=== PATIENT | female | born 1950 ===

== ENCOUNTER 2025-02-13 10:52 | Outpatient (AMB) | payer OTHER, SELFPAY ==
--- NOTE | 2025-02-13 11:20 | A.OFFVIS_ITS ---
Intake Visit Reasons: Kidney Mass question cancer Intake Note: New Patient is present for kidney mass Urology Rx: none Blood Thinners:none Imaging completed: CT 12/19/2024 Chief Gauger Required: No Accompanied by: Self / Same As Patient Allergies No Known Allergies Allergy (Verified 02/13/25 11:27) HPI Comments Details: Sarai is a pleasant Moroccan speaking female. Accompanied by member from [employer]. She is a patient of . She is seen for following urologic conditions - renal mass Medical translation provided by qualified certified court interpreter via telephone Moroccan Underwent chest CT after fall in December Suspect 5 cm lesion on right kidney highly suspicious for kidney cancer Discussed imaging findings with patient Recommend 1st step kidney MRI for full characterization Treatment options include surgical removal versus targeted ablation Does have background diabetes however well-controlled with just metformin Review of Systems Const Denies chills and Denies fever(s) Card Reports no additional complaints and Denies syncope Resp Denies cough GI Denies abdominal pain and Denies heartburn Reports as per HPI and Denies change in libido Neuro Denies syncope Psych Denies change in libido Endo Denies change in libido Physical Exam Const General: cooperative, healthy appearing, comfortable and no acute distress Orientation/consciousness: patient oriented x3 HEENT Face and sinus: Yes normal facial exam Mouth: moist mucous membranes Neck Neck: Yes normal visual inspection, Yes full ROM and Yes trachea midline Chest Chest palpation & inspection: normal inspection of the chest Resp Effort & Inspection: normal respiratory effort, able to speak in complete sentences and no respiratory distress GI Inspection: Yes normal to inspection Back/Spine/Pelvis Cervical Spine: normal cervical lordosis Thoracic/Lumbar Spine: thoracic and lumbar spine normal to inspection Skin General skin exam: no rashes or lesions noted Neuro General: patient oriented x3, gait normal, tone normal and moves all extremities Extrem General: Yes normal to inspection and Yes capillary refill normal Assessment & Plan Assessment & Plan (1) Kidney malignancy: Code(s): C64.9 - Malignant neoplasm of unspecified kidney, except renal pelvis Category: Medical Plan Renal imaging Follow-up Orders: Orders MR abdomen wo/w con Today C64.9 - Malignant neoplasm of unspecified kidney, except renal pelvis Blood Urea Nitrogen Today C64.9 - Malignant neoplasm of unspecified kidney, except renal pelvis Creatinine Today C64.9 - Malignant neoplasm of unspecified kidney, except renal pelvis Patient Instructions: This note is constructed using voice recognition software. While every effort has been made to ensure accuracy property management coordinator errors may have been included. Imaging studies, laboratory and physical exam results were discussed and reviewed in detail. No major barriers to patient understanding were identified. An opportunity to ask questions regarding the treatment plan was provided. All questions were answered. The patient expressed understanding and agreement with the above treatment plan. The patient is aware they should contact our office by phone for worsening of their current condition or the appearance of new urologic symptoms. Compliance is encouraged with any medications and followup testing that is ordered. It is a privilege to participate in the urologic care of your patient. If you have any questions or concerns regarding treatment for the above conditions, or other urologic issues, please do not hesitate to contact me. The office telephone contact is [phone]. Sincerely, Dr Sim Reese MD, [facility] - Urology Compassionate Specialist Care for the Genitourinary System Coding Level of Care Code New Pt Level 4 (36267) Diagnoses Kidney malignancy C64.9
--- OUTSIDE RECORDS SUMMARY | 2025-02-13 12:54 | XMS_ITS | Clinical Summary ---
Author Organization [facility] it Address [address] [place] [address] Care Team Providers Care Design Eng Name Role Phone Unavailable Primary Care Provider Unavailabl e Social History Tobacco Use Types Packs/Day Years Used Date Smoking Tobacco: Never Assessed Comments Unknown Sex and Gender Information Value Date Recorded Sex Assigned at Not on file Legal Sex Female 3:09 AM EST Gender Identity Not on file Sexual Orientation Not on file Plan of Treatment Health Maintenance Due Date Last Done Comments Breast Cancer Screening 1950 DTaP,Tdap,and Td Vaccines (1 - Tdap) 1969 Pneumococcal Vaccine: 50+ Ye ars (1 of 1 - PCV) 2000 Zoster Vaccines (1 of 2) 2000 Depression Screening 06/13/2024 COVID-19 Vaccine (1 - 2023-2 5 season) 2025 Influenza Vaccine (#1) 2025 RSV Immunization Adult Patie nts (1 - 1-dose 75+ series) 2025 HIB Vaccines Aged Out No longer eligi ble based on patient's age to complete this topic HPV Vaccines Aged Out No longer eligi ble based on patient's age to complete this topic Hepatitis A Vaccines Aged Out No long er eligible based on patient's age to complete this topic Hepatitis B Vaccines Aged Out No long er eligible based on patient's age to complete this topic IPV Vaccines Aged Out No longer eligi ble based on patient's age to complete this topic MMR Vaccines Aged Out No longer eligi ble based on patient's age to complete this topic Meningococcal ACWY Vaccine Aged Out N o longer eligible based on patient's age to complete this topic Meningococcal B Vaccine Aged Out No l onger eligible based on patient's age to complete this topic RSV Immunization Patients Un nidira 20 months Aged Out No longer eligible b ased on patient's age to complete this topic Varicella Vaccines Aged Out No longer eligible based on patient's age to complete this topic
--- OUTSIDE RECORDS SUMMARY | 2025-02-13 12:54 | XMS_ITS | Clinical Summary ---
Author Organization [facility] Address [address] [place] [address] Care Team Providers Care Prosecuting Attorney Name Role Phone Desiree Tran PA-C Primary Care Provider Source Comments PLEASE NOTE, if this patient is a minor, it may be UNLAWFUL to discuss sensitive information that is contained in these records (such as FAMILY PLANNING, MENTAL HEALTH or SUBSTANCE ABUSE) with the minor patient's parent or other person without the patient's specific authorization.[facility] Allergies Active Allergy Reactions Criticality Noted Date Comments Nathanael Inhibitors Anaphylaxis 05/31/2013 Medications lancets (FREESTYLE LANCETS) 28 gaugeIndications: Diabetes mellitus type 2, diet-controlled ([facility]) Freestyle lite lancets, use QD, dx E11.9 50 Each 09/05/19 24 Active alcohol swabsIndications: Diabetes mellitus type 2, diet-controlled ([facility]) Use qd, dx E11.9. 50 Each 01/24/20 25 Active lancets (FREESTYLE LANCETS) 28 gaugeIndications: Diabetes mellitus type 2, diet-controlled ([facility]) Freestyle lite lancets, use QD, dx E11.9. 50 Each 01/24/20 25 Active blood sugar diagnostic stripsIndications :Diabetes mellitus type 2, diet-controlled ([facility]) 1 Each daily Freestyle lite strips use QD, dx E11.9. 50 Each 01/24/20 25 Active olmesartan (BENICAR) 20 mg tabletIndications :Benign essential HTN Take 1 Tablet by mouth once daily. 90 Tablet 4 01/24/20 25 Active rosuvastatin (CRESTOR) 5 mg tabletIndications :Mild hyperlipidemia Take 1 Tablet by mouth nightly at bedtime. 90 Tablet 2 01/24/20 [address] tabletIndications :Benign essential HTN,Diabetes mellitus type 2, diet-controlled ([facility]) Take 1 Tablet by mouth once daily. 90 Tablet 3 01/24/20 25 Active metFORMIN (GLUCOPHAGE) 500 mg tabletIndications :Diabetes mellitus type 2, diet-controlled ([facility]) Take 1 Tablet by mouth once daily with breakfast. 90 Tablet 2 01/24/20 25 Active diclofenac sodium (VOLTAREN) 1 % gelIndications:Diana mbar disc disease Apply 2 g topically 2 (two) times daily. 100 g 01/24/20 25 Active acetaminophen (TYLENOL) 500 mg tabletIndications :Subacute sinusitis, unspecified location Take 2 Tablets by mouth every 6 (six) hours as needed for pain or fever 200 Tablet 1 05/31/20 025 Discontin ued(Outda federico-Remov ed from Med List (E-Cancel Not Sent)) MISCELLANEOUS MEDICAL SUPPLY MISCIndications:M ixed incontinence by miscellaneous route daily. Dry skin cream, disp 400 gm/month, dx dry skin dermatitis 400 Each 05/31/20 025 Discontin ued(Outda federico-Remov ed from Med List (E-Cancel Not Sent)) alcohol swabsIndications: Diabetes mellitus type 2, diet-controlled ([facility]) Use qd, dx E11.9 50 Each 09/05/19 24 025 Discontin ued(Outda federico-Remov ed from Med List (E-Cancel Not Sent)) blood sugar diagnostic stripsIndications :Diabetes mellitus type 2, diet-controlled ([facility]) 1 Each daily. Freestyle lite strips use QD, dx E11.9 50 Each 09/05/19 24 025 Discontin ued(Outda federico-Remov ed from Med List (E-Cancel Not Sent)) blood-glucose meter monitoring kitIndications:Di abetes mellitus type 2, diet-controlled ([facility]) 1 Each daily. Freestyle lite meter, disp 1, lifetime need, dx E11.9 1 Each 09/05/19 24 025 Discontin ued(Outda federico-Remov ed from Med List (E-Cancel Not Sent)) comp.stocking,kne e,long,mediumIndi cations:Venous insufficiency 20-30 mmHg thigh high compression stockings, disp 2 pairs, dx venous insufficiency, fax 1 Each 09/05/19 24 025 Discontin ued(Outda federico-Remov ed from Med List (E-Cancel Not Sent)) MISCELLANEOUS MEDICAL SUPPLY MISCIndications:M ixed incontinence by miscellaneous route daily. sanitary wipes, two packs/month dx bowel/bladder care 200 Each 11 09/05/19 24 025 Discontin ued(Outda federico-Remov ed from Med List (E-Cancel Not Sent)) MISCELLANEOUS MEDICAL SUPPLY MISCIndications:M ixed incontinence by miscellaneous route daily. 1 box large gloves, disp 1 box/month dx bowel/bladder care 100 Each 11 09/05/19 24 025 Discontin ued(Outda federico-Remov ed from Med List (E-Cancel Not Sent)) diclofenac sodium (VOLTAREN) 1 % gelIndications:Pr imary osteoarthritis involving multiple joints APPLY 4 GRAMS TOPICALLY TO BILATERAL KNEES FOUR TIMES DAILY 300 g 5 03/14/20 24 025 Discontin ued(Cance lled) olmesartan (BENICAR) 20 mg tabletIndications :Benign essential HTN Take 1 Tablet by mouth once daily 90 Tablet 4 03/14/20 24 025 Discontin ued(Reord er (E-Cancel Not Sent)) rosuvastatin (CRESTOR) 5 mg tabletIndications :Mild hyperlipidemia Take 1 Tablet by mouth nightly at bedtime 90 Tablet 2 03/14/20 24 025 Discontin ued(Reord er (E-Cancel Not Sent)) aspirin [address] tabletIndications :Benign essential HTN,Diabetes mellitus type 2, diet-controlled ([facility]) TAKE 1 TABLET BY MOUTH EVERY DAY 90 Tablet 3 04/23/20 24 025 Discontin ued(Reord er (E-Cancel Not Sent)) metFORMIN (GLUCOPHAGE) 500 mg tabletIndications :Diabetes mellitus type 2, diet-controlled (CMS & [facility]HS-HCC) TAKE 1 TABLET BY MOUTH DAILY WITH BREAKFAST 90 Tablet 2 10/05/19 25 025 Discontin ued(Reord er (E-Cancel Not Sent)) Active Problems Problem Noted Date Diagnosed Date Right kidney mass 01/23/2025 Lumbar disc disease 03/28/2020 Primary generalized hypertrophic osteoarthrosis 01/19/2017 Visual changes 09/08/2016 Cognitive changes 09/08/2016 Diabetes mellitus type 2, diet-controlled ([facility]) 06/04/2016 Venous insufficiency 03/02/2016 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 11/02/2013 11/02/2013 Benign essential HTN Varicose vein GERD (gastroesophageal reflux disease) Overview (04/05/2013): Hiatal hernia GI 11/07/2008 Encounters Date Type Department Care Team Description 01/23/2025 9:20 AM EDT Office Visit [address] [address] Desiree Tran PA-C from Last 3 Months Immunizations Immunization Administration Dates Next Due Hep B, Adult/Adol (UGHSYOL-B-UTBZE/RECOMBIVAX-AD ULT) 12/02/2005,10/07/2005 Td (adult),2 Lf tetanus toxo id (TDVAX), preservative free 10/07/2005,08/19/2005 Social History Tobacco Use Types Packs/Day Years Used Date Smoking Tobacco: Never Passive Smoke Exposure: Never Smokeless Tobacco: Never Tobacco Cessation:Counseling Given: Yes Alcohol Use Standard Drinks/Week Comments No 0 (1 standard drink = 0.6 oz pur e alcohol) Social Connections Answer Date Recorded Connectedness 1 09/05/2023 Financial Resource Strain Answer Date R ecorded Financial Resource Strain 1 2023 Stress Answer Date Recorded Stress 1 09/05/2023 Physical Activity Answer Date Recorded Physical Activity 0 02/02/2019 Food Insecurity Answer Date Recorded Food 1 09/05/2023 Transportation Needs Answer Date Record ed Transportation 1 09/05/2023 Housing Stability Answer Date Recorded Housing 1 09/05/2023 Safety and Environment Answer Date Wilfrid rded Safety 1 09/05/2023 Utilities Answer Date Recorded Utilities 1 09/05/2023 Employment Answer Date Recorded Stress 0 08/31/2021 Comments No Sex and Gender Information Value Date Recorded Sex Assigned at Female 04/05/2017 11:57 AM PDT Legal Sex Female 11:36 AM PDT Gender Identity Female 04/05/2017 11:57 AM PDT Sexual Orientation Straight 04/05/2017 11 :57 AM PDT Last Filed Vital Signs Vital Sign Reading Time Taken Comments Blood Pressure 132/64 01/23/2025 9:13 AM EDT Pulse 71 01/23/2025 9:13 AM EDT Temperature 36.3 C (97.4 F) 01/23/2025 9:13 AM EDT Respiratory Rate 16 01/23/2025 9:13 AM EDT Oxygen Saturation 98% 01/23/2025 9:13 AM EDT Inhaled Oxygen Concentration - - Weight 66.7 kg (147 lb) 01/23/2025 9:13 AM EDT Height 166 cm (5' 5.35 ) 01/23/2025 9:13 AM EDT Body Mass Index 24.2 01/23/2025 9:13 AM EDT Plan of Treatment Upcoming Encounters Date Type Department Care Team (Late st Contact Info) Description 03/11/2025 11:00 AM EDT Telemedicine Visit [facility] [address] [place] [address] Desiree Tran PA-C [address] [place] [address] Health Maintenance Due Date Last Done Comments Medicare Annual Wellness Visit 1968 Imm-Pneumococcal 50+ (1 of 2 - PCV) 1969 CT Colonography 12/28/1995 Colonoscopy 12/28/1995 Fecal DNA 12/28/1995 Flexible Sigmoidoscopy 12/28/1995 Breast Cancer Screening (Mammogram) 05/31/2015 05/31/2013 (Declined) Colorectal Cancer Screening 07/23/2015 FIT/gFOBT 07/23/2015 07/23/2014 (Decl ined), 05/31/2013 (Declined) Falls Prevention 12/28/2015 Mee-NXXON-30 ( season) 2025 Diabetes Foot Exam 03/14/2025 03/14/2024, 0 09/08/2022, 11/17/2021 Retinopathy Screening 03/14/2025 03/14/2024 (Managed by Outside Provider) Hemoglobin A1c 07/26/2025 01/23/2025, 1007/2023, 05/31/2023, Additional history exists Lipid Screening 01/23/2026 01/23/2025, 05/13, 09/08/2022, Additional history exists Serum Creatinine 01/23/2026 01/23/2025, 07/2023, 05/31/2023, Additional history exists Tobacco Screening 01/23/2026 01/23/2025 Urine Albumin Creatinine Rat io Screening 01/23/2026 01/23/2025, 05/31/2023, 09/08/2022, Additional history exists Imm-DTaP/Tdap/Td Discontinued 10/07/2005, 08/19/2005 Imm-Hepatitis B Discontinued 12/02/2005, 10/07/2005 Imm-Influenza Discontinued 07/23/2014 (Decl ined), 05/31/2013 (Declined) Hepatitis C Screening Completed 03/28/2020 Alcohol and Drug Screen Completed 01/24/20, 09/05/2023, 09/08/2022, Additional history exists Depression Annual Screen Completed 01/23/2025, 07/14 Bone Density Screening Discontinued Dental Examination Discontinued Imm-Zoster, Recombinant Discontinued Procedures Procedure Name Priority Date/Time Associated Diagnosis Comments OTHER ORDERS SCANNED DOCUMENT 01/24/2025 3:00 AM EDT IMAGING SCANNED DOCUMENT Routine 01/23/2025 10:23 AM EDT Right kidney mass RFLX - REFLEXIVE URINE CULTURE Routine 01/23/2025 9:34 AM EDT ASSAY OF MAGNESIUM Routine 01/23/2025 9: 34 AM EDT Benign essential HTN Diabetes mellitus type 2, diet-controlled ([facility]) Venous insufficiency Right kidney mass Mild hyperlipidemia Mild vitamin D deficiency VITAMIN B12 & FOLATE Routine 01/23/2025 9:34 AM EDT Benign essential HTN Diabetes mellitus type 2, diet-controlled (HCC-CMS) Venous insufficiency Right kidney mass Mild hyperlipidemia Mild vitamin D deficiency 25 HYDROXY INCLUDES FRACTIONS IF PERFORMED Routine 01/23/2025 9:34 AM EDT Benign essential HTN Diabetes mellitus type 2, diet-controlled (HCC-CMS) Venous insufficiency Right kidney mass Mild hyperlipidemia Mild vitamin D deficiency BLOOD COUNT COMPLETE AUTO&AUTO DIFRNTL WBC Routine 01/23/2025 9:34 AM EDT Benign essential HTN Diabetes mellitus type 2, diet-controlled (HCC-CMS) Venous insufficiency Right kidney mass Mild hyperlipidemia Mild vitamin D deficiency COMPREHENSIVE METABOLIC PANEL Routine 01/23/2025 9:34 AM EDT Benign essential HTN Diabetes mellitus type 2, diet-controlled (HCC-CMS) Venous insufficiency Right kidney mass Mild hyperlipidemia Mild vitamin D deficiency LIPID PANEL Routine 01/23/2025 9:34 AM EDT Benign essential HTN Diabetes mellitus type 2, diet-controlled (HCC-CMS) Venous insufficiency Right kidney mass Mild hyperlipidemia Mild vitamin D deficiency TSH W/RFLX FREE T4 Routine 01/23/2025 9: 34 AM EDT Benign essential HTN Diabetes mellitus type 2, diet-controlled (HCC-CMS) Venous insufficiency Right kidney mass Mild hyperlipidemia Mild vitamin D deficiency HEMOGLOBIN GLYCOSYLATED A1C Routine 01/23/2025 9:34 AM EDT Benign essential HTN Diabetes mellitus type 2, diet-controlled (HCC-CMS) Venous insufficiency Right kidney mass Mild hyperlipidemia Mild vitamin D deficiency URINALYSIS, COMPLETE W/REFLEX TO CULTURE Routine 01/23/2025 9:34 AM EDT Benign essential HTN Diabetes mellitus type 2, diet-controlled (HCC-CMS) Venous insufficiency Right kidney mass Mild hyperlipidemia Mild vitamin D deficiency MICROALBUMIN/CREATININ E RATIO, URINE, RANDOM Routine 01/23/2025 9:34 AM EDT Benign essential HTN Diabetes mellitus type 2, diet-controlled (HCC-CMS) Venous insufficiency Right kidney mass Mild hyperlipidemia Mild vitamin D deficiency HEPATITIS A,B,C PANEL Routine 03/28/2020 9:20 AM EDT Routine general medical examination at a health care facility Benign essential HTN Pre-diabetes from Last 3 Months or Most Recently Relevant to Health Maintenance Results * OTHER ORDERS SCANNED DOCUMENT (01/24/2025 3:00 AM EDT) 01/24/2025 3:00 AM EDT Desiree Tran PA-C SCAN OTHER ORDERS Final Resu lt * IMAGING SCANNED DOCUMENT (01/23/2025 10:23 AM EDT) Impressions Desiree Tran PA-C - 01/23/2025 10:23 AM EDT Result type: CT Chest W/O Contrast Result date: December 19, 2024 17:45 EDT Result status: Auth (Verified) Result title: CT Chest W/O Contrast Performed by: Sunny Jean DO on December 19, 2024 18:31 EDT Verified by: Sunny Jean DO on December 19, 2024 18:31 EDT Encounter info: [id number], [facility], Disch ES, 12/19/2024 - 12/19/2024 * Final Report * Reason For Exam Trauma RESULT: CT Chest W/O Contrast CT Chest W/O Contrast INDICATION: Hx of Present Illness: pt in from home for c o bruise to left breast, scrape to left forearm and dried blood noted to left great toe. pt was walking down steps and hit left chest on railing. pt denies headstrike, denies loc. takes 81mg ASA.; Reason: Trauma; Clinical Question(s): Other:; fracture TECHNIQUE: Helical CT scan of the chest without IV contrast, formatted in 3 planes. Weight-based protocol was performed using automatic exposure control. CTDIvol Body: 14.70 mGy, DLP Body: 699 mGy*cm. COMPARISON: None. FINDINGS: Religious Ritual Slaughterer view findings, lines and tubes: None. Trachea and airways: Patent without evidence of tracheal or endobronchial lesion. Lungs and pleura: No focal consolidations. No effusion or pneumothorax. 5 mm pulmonary nodule within the right middle lobe (series 2 image 45). 5 mm pulmonary nodule within the right middle lobe (series 2 image 39). 5 mm pulmonary nodule in the right upper lobe (series 2 image 7). Mild bibasilar versus scarring. Mediastinum and gissell: No mass or hematoma. No mediastinal or hilar lymphadenopathy. No esophageal abnormality. Normal thyroid. Heart: Heart is normal in size. No pericardial effusion. Moderate coronary artery calcification. Aorta: No aortic aneurysm. Pulmonary arteries: Normal caliber. Chest wall soft tissues: Edema along the left lateral chest wall. No focal fluid collections or hematomas. Diaphragm: Intact. Upper abdomen: 5.6 cm mass within the interpolar right kidney, incompletely evaluated without IV contrast. There are numerous other simple appearing renal cysts. Bones: No acute abnormality. IMPRESSION: Edema along the left lateral chest wall. No focal fluid collections or hematomas. 5.6 cm mass within the interpolar right kidney, incompletely evaluated without IV contrast. Findings are highly suspicious for neoplasm. Recommend MRI with and without contrast for further evaluation. There are a few 5 mm pulmonary nodules with no right lung. Findings are suspicious for metastasis in the setting of neoplasm. An actionable message ([place]) has been communicated via the EventRegist system on 12/19/2024 6:31 PM, Message ID [id number]. WSN: [id number] Ordering Physician: Juan Carlos Raza Signature Line Dictated By: Sunny Jean DO Dictated Date/Time: 12/19/24 6:31 pm Reviewed By: Sunny Jean DO Signed By: Sunny Jean DO Signed Date/Time: 12/19/24 6:31 pm Transcribed By: TERSEA Transcribed Date/Time: 12/19/24 5:[address] Chest W/O Contrast This document has an image us Provider [facility] SC[facility]AG[facility] Final Result * TSH W/RFLX FREE T4 Routine (01/23/2025 9:34 AM EDT) TSH W/REFLEX TO FT4 0.61 0.40 - 4.50 mIU/L 01/24/2025 4:56 AM EDT [facility] Blood Blood / Unknown 01/23/2025 9 :34 AM EDT 01/24/2025 3:24 AM EDT Narrative [facility] - 01/24/2025 5:20 AM EDT FASTING:YES us Desiree Tran PA-C LAB - BLOOD DRAW Final Resul t [email or web address] [address] [address], [facility] [address] [place] [address] * URINALYSIS, COMPLETE W/REFLEX TO CULTURE Urine Routine (01/23/2025 9:34 AM EDT) COLOR YELLOW YELLOW 01/24/2025 3:26 AM EDT [facility] APPEARANCE CLEAR CLEAR 01/24/2025 3:26 AM EDT [facility] SPECIFIC GRAVITY 1.009 1.001 - 1.035 01/24/2025 3:26 AM EDT [facility] [place] [facility] URINE PH 7.0 5.0 - 8.0 01/24/2025 3:26 AM EDT [facility] [place] [facility] GLUCOSE NEGATIVE NEGATIVE 01/24/2025 3:26 AM EDT [facility] BILIRUBIN NEGATIVE NEGATIVE 01/24/2025 3:26 AM EDCinema One [place] [facility] KETONES NEGATIVE NEGATIVE 01/24/2025 3:26 AM [facility]inema One [place] [facility] OCCULT BLOOD NEGATIVE NEGATIVE 01/24/2025 3:26 AM [facility]Cinema One [facility] URINE PROTEIN NEGATIVE NEGATIVE 01/24/2025 3:26 AM [facility]inema [facility] [place] [facility] NITRITE NEGATIVE NEGATIVE 01/24/2025 3:26 AM [facility]Cinema One [place] [facility] LEUKOCYTE ESTERASE NEGATIVE NEGATIVE 01/24/2025 3:26 AM [facility]Cinema One [facility] URINE LEUKOCYTES NONE SEEN 0 - 5 /HPF 01/24/2025 3:26 AM [facility]Cinema One [place] [facility] RBC NONE SEEN 0 - 2 /HPF 01/24/2025 3:26 AM [facility]Cinema One [place] [facility] SQUAMOUS EPITHELIAL CELLS NONE SEEN < OR = 5 /HPF 01/24/2025 3:26 AM [employer] BACTERIA NONE SEEN NONE SEEN /HPF 01/24/2025 3:26 AM EDT [facility] HYALINE CAST NONE SEEN NONE SEEN /LPF 01/24/2025 3:26 AM EDT [facility] SEE NOTE SEE NOTE 01/24/2025 3:26 AM EDT [facility] Urine Urine specimen / Unknown 01/23/2025 9:34 AM EDT 01/24/2025 3:08 AM EDT Narrative [facility] - 01/24/2025 3:35 AM EDT FASTING:YES This urine was analyzed for the presence of WBC, RBC, bacteria, casts, and other formed elements. Only those elements seen were reported. . . us Desiree Tran PA-C LAB URINE AMBULATORY Final R esult Performing Organization Address [facility] Co de Phone Number [facility] [address] [address], [employer] [address] [address] * RFLX - REFLEXIVE URINE CULTURE Routine (01/23/2025 9:34 AM EDT) REFLEXIVE URINE CULTURE SEE NOTE 01/24/2025 3:26 AM EDT [facility] 01/23/2025 9:34 AM EDT 01/24/2025 3:08 AM EDT Narrative [facility] - 01/24/2025 3:35 AM EDT FASTING:YES NO CULTURE INDICATED us Desiree Tran PA-C LAB - MICROBIOLOGY AMBULATOR Y Final Result Performing Organization Address [facility] de Phone Number [facility] [address] [address], [employer] [address] [address] * MICROALBUMIN/CREATININE RATIO, URINE, RANDOM Urine Routine (01/23/2025 9:34 AM EDT) CREATININE, RANDOM URINE 45 20 - 275 mg/dL 01/24/2025 5:52 PM EDT [facility] MICROALBUMIN 0.3 mg/dL 01/24/2025 5:52 PM EDT [facility] MICROALBUMIN/CRE ATININE RATIO, RANDOM URINE 7 <30 mg/g creat 01/24/2025 5:52 PM EDT [facility] Urine Urine specimen / Unknown 01/23/2025 9:34 AM EDT 01/24/2025 2:40 AM EDT [employer] - 01/24/2025 5:58 PM EDT FASTING:YES Reference Range Not established . The ADA defines abnormalities in albumin excretion as follows: . Albuminuria Category Result (mg/g creatinine) . Normal to Mildly increased <30 Moderately increased 30-299 Severely increased > OR = 300 . The ADA recommends that at least two of three specimens collected within a 3-6 month period be abnormal before considering a patient to be within a diagnostic category. us Desiree Tran PA-C LAB URINE AMBULATORY Final R esult Performing Organization Address [facility] de Phone Number [email or web address] [address] [place] [address], [facility] [address] [address] * VITAMIN B12 & FOLATE Routine (01/23/2025 9:34 AM EDT) VITAMIN B12 237 200 - 1,100 pg/mL 01/24/2025 4:57 AM EDT [facility] FOLATE, SERUM 15.3 ng/mL 01/24/2025 4:57 AM EDT [facility] Blood Blood / Unknown 01/23/2025 9 :34 AM EDT 01/24/2025 3:24 AM EDT [employer] - 01/24/2025 5:20 AM EDT FASTING:YES . Please Note: Although the reference range for vitamin B12 is 200-1100 pg/mL, it has been reported that between 5 and 10% of patients with values between 200 and 400 pg/mL may experience neuropsychiatric and hematologic abnormalities due to occult B12 deficiency; less than 1% of patients with values above 400 pg/mL will have symptoms. . Reference Range Low: <3.4 Borderline: 3.4-5.4 Normal: >5.4 . us Desiree Tran PA-C LAB - BLOOD DRAW Final Resul t Performing Organization Address [facility] Co de Phone Number [email or web address] [address] [place] [address], [facility] [address] [place] [address] * (ABNORMAL) BLOOD COUNT COMPLETE AUTO&AUTO DIFRNTL WBC Routine (01/23/2025 9:34 AM EDT) WHITE BLOOD CELL COUNT 5.6 3.8 - 10.8 Thousand/ uL 01/24/2025 4:15 AM EDT [facility] RED BLOOD CELL COUNT 4.33 3.80 - 5.10 Million/u L 01/24/2025 4:15 AM EDT [facility] HEMOGLOBIN 12.4 11.7 - 15.5 g/dL 01/24/2025 4:15 AM [employer]Cinema One [facility] HEMATOCRIT 40.0 35.0 - 45.0 % 01/24/2025 4:15 AM EDT [facility] MCV 92.4 80.0 - 100.0 fL 01/24/2025 4:15 AM EDT [facility] MCH 28.6 27.0 - 33.0 pg 01/24/2025 4:15 AM EDT [facility] MCHC 31.0(L) 32.0 - 36.0 g/dL 01/24/2025 4:15 AM EDT [facility] RDW 13.7 11.0 - 15.0 % 01/24/2025 4:15 AM EDT [facility] PLATELET COUNT 208 140 - 400 Thousand/ uL 01/24/2025 4:15 AM [facility]Cinema One [facility] MPV 10.4 7.5 - 12.5 fL 01/24/2025 4:15 AM EDT [facility] ABSOLUTE NEUTROPHILS 2,313 1,500 - 7,800 cells/uL 01/24/2025 4:15 AM EDT [facility] ABSOLUTE LYMPHOCYTES 2,486 850 - 3,900 cells/uL 01/24/2025 4:15 AM [facility]ema One [facility] ABSOLUTE MONOCYTES 582 200 - 950 cells/uL 01/24/2025 4:15 AM [facility] ABSOLUTE EOSINOPHILS 168 15 - 500 cells/uL 01/24/2025 4:15 AM [facility]ema One [facility] ABSOLUTE BASOPHILS 50 0 - 200 cells/uL 01/24/2025 4:15 AM [facility]inema One [facility] NEUTROPHILS PCT 41.3 % 4:15 AM EDT [facility] LYMPHOCYTES 44.4 % 01/24/2025 4:15 AM EDT [facility] MONOCYTES 10.4 % 01/24/2025 4:15 AM EDT [facility] EOSINOPHILS 3.0 % 01/24/2025 4:15 AM EDT [facility] BASOPHILS 0.9 % 01/24/2025 4:15 AM EDT [facility] Blood Blood / Unknown 01/23/2025 9 :34 AM EDT 01/24/2025 2:51 AM EDT Narrative [employer] - 01/24/2025 4:32 AM EDT FASTING:YES For adults, a slight decrease in the calculated MCHC value (in the range of 30 to 32 g/dL) is most likely not clinically significant; however, it should be interpreted with caution in correlation with other red cell parameters and the patient's clinical condition. us Desiree Tran PA-C LAB - BLOOD DRAW Final Resul t Performing Organization Address City/[facility] Co de Phone Number [employer] [address] [address], [employer] [address] [address] * ASSAY OF MAGNESIUM Routine (01/23/2025 9:34 AM EDT) MAGNESIUM 2.3 1.5 - 2.5 mg/dL 01/24/2025 5:08 AM EDT [facility] Blood Blood / Unknown 01/23/2025 9 :34 AM EDT 01/24/2025 3:24 AM EDT Narrative [employer] - 01/24/2025 5:20 AM EDT FASTING:YES us Desiree Tran PA-C LAB - BLOOD DRAW Final Resul t Performing Organization Address City/[facility] Co de Phone Number [facility] [address] [address], [employer] [address] [phone] * (ABNORMAL) HEMOGLOBIN GLYCOSYLATED A1C Routine (01/23/2025 9:34 AM EDT) HEMOGLOBIN A1C 6.2(H) <5.7 % 01/24/2025 5:57 PM EDT [facility] Blood Blood / Unknown 01/23/2025 9 :34 AM EDT 01/24/2025 2:51 AM EDT Narrative [email or web address] - 01/24/2025 5:58 PM EDT FASTING:YES For someone without known diabetes, a hemoglobin A1c value between 5.7% and 6.4% is consistent with prediabetes and should be confirmed with a follow-up test. . For someone with known diabetes, a value <7% indicates that their diabetes is well controlled. A1c targets should be individualized based on duration of diabetes, age, comorbid conditions, and other considerations. . This assay result is consistent with an increased risk of diabetes. . Currently, no consensus exists regarding use of hemoglobin A1c for diagnosis of diabetes for children. . Desiree Tran PA-C LAB - BLOOD DRAW Final Resul t [email or web address] [address] [place] [id number], [facility] [address] [place] [phone] * 25 HYDROXY INCLUDES FRACTIONS IF PERFORMED Routine (01/23/2025 9:34 AM EDT) VITAMIN D, 25-OH, TOTAL 36 30 - 100 ng/mL 01/24/2025 8:54 AM EDT [facility] Blood Blood / Unknown 01/23/2025 9 :34 AM EDT 01/24/2025 3:24 AM EDT Narrative [email or web address] - 01/24/2025 9:04 AM EDT FASTING:YES Vitamin D Status 25-OH Vitamin D: . Deficiency: <20 ng/mL Insufficiency: 20 - 29 ng/mL Optimal: > or = 30 ng/mL . For 25-OH Vitamin D testing on patients on D2-supplementation and patients for whom quantitation of D2 and D3 fractions is required, the [facility]() 25-OH VIT D, (D2,D3), LC/MS/MS is recommended: order code 03131 (patients >2yrs). . See Note 1 . Note 1 . For additional information, please refer to http://education.[employer]/faq/BOF598 (This link is being provided for informational/ educational purposes only.) Desiree Tran PA-C LAB - BLOOD DRAW Final Resul t [facility] [place] [facility] [address] [place] [id number], [facility] [address] [phone] * LIPID PANEL Routine (01/23/2025 9:34 AM EDT) CHOLESTEROL, TOTAL 139 <200 mg/dL 01/24/2025 5:08 AM EDT [facility] HDL CHOLESTEROL 76 > OR = 50 mg/dL 01/24/2025 5:08 AM EDT [facility] TRIGLYCERIDES 62 <150 mg/dL 01/24/2025 5:08 AM EDT [facility] LDL-CHOLESTEROL 49 mg/dL (calc) 01/24/2025 5:08 AM EDT [facility] CHOL/HDLC RATIO 1.8 <5.0 (calc) 01/24/2025 5:08 AM EDT [facility] NON-HDL CHOLESTEROL 63 <130 mg/dL (calc) 01/24/2025 5:08 AM EDT [facility] Blood Blood / Unknown 01/23/2025 9 :34 AM EDT 01/24/2025 3:24 AM EDT Narrative [facility] - 01/24/2025 5:20 AM EDT FASTING:YES Reference range: <100 . Desirable range <100 mg/dL for primary prevention; <70 mg/dL for patients with CHD or diabetic patients with > or = 2 CHD risk factors. . LDL-C is now calculated using the Dev calculation, which is a validated novel method providing better accuracy than the Friedewald equation in the estimation of LDL-C. Jeremy GOLDMAN et al. MAGNO. 2013;310(19): 9863-6509 (http://education.[employer]ooplus/faq/NIA025) For patients with diabetes plus 1 major ASCVD risk factor, treating to a non-HDL-C goal of <100 mg/dL (LDL-C of <70 mg/dL) is considered a therapeutic option. Desiree Tran PA-C LAB - BLOOD DRAW Final Resul t [facility] [address] [address], [facility] [address] [place] [address] * (ABNORMAL) COMPREHENSIVE METABOLIC PANEL Routine (01/23/2025 9:34 AM EDT) GLUCOSE 103(H) 65 - 99 mg/dL 01/24/2025 5:08 AM EDT [facility] UREA NITROGEN (BUN) 13 7 - 25 mg/dL 01/24/2025 5:08 AM [facility]Cinema One [facility] CREATININE (blood) 0.74 0.60 - 1.00 mg/dL 01/24/2025 5:08 AM [facility]Cinema One [facility] EGFR 85 > OR = 60 mL/min/1. 73m2 01/24/2025 5:08 AM [facility] BUN/CREATININE RATIO SEE NOTE: 6 - 22 (calc) 01/24/2025 5:08 AM EDT [facility] SODIUM 143 135 - 146 mmol/L 01/24/2025 5:08 AM [facility]Cinema One [facility] POTASSIUM 4.9 3.5 - 5.3 mmol/L 01/24/2025 5:08 AM [facility]Cinema One [facility] CHLORIDE 110 98 - 110 mmol/L 01/24/2025 5:08 AM EDCinema One [facility] CARBON DIOXIDE 28 20 - 32 mmol/L 01/24/2025 5:08 AM EDCinema One [facility] CALCIUM 10.3 8.6 - 10.4 mg/dL 01/24/2025 5:08 AM EDCinema One [facility] PROTEIN, TOTAL 7.1 6.1 - 8.1 g/dL 01/24/2025 5:08 AM [facility]Cinema One [facility] ALBUMIN 4.5 3.6 - 5.1 g/dL 01/24/2025 5:08 AM EDT [facility] GLOBULIN 2.6 1.9 - 3.7 g/dL (calc) 01/24/2025 5:08 AM EDT [facility] ALBUMIN/GLOBULI N RATIO 1.7 1.0 - 2.5 (calc) 01/24/2025 5:08 AM EDT [facility] BILIRUBIN, TOTAL 0.6 0.2 - 1.2 mg/dL 01/24/2025 5:08 AM EDT [facility] ALKALINE PHOSPHATASE 74 37 - 153 U/L 01/24/2025 5:08 AM EDT [facility] AST 16 10 - 35 U/L 01/24/2025 5:08 AM EDT [facility] ALT 13 6 - 29 U/L 01/24/2025 5:08 AM EDT [facility] Blood Blood / Unknown 01/23/2025 9 :34 AM EDT 01/24/2025 3:24 AM EDT Narrative [facility] - 01/24/2025 5:20 AM EDT FASTING:YES . Fasting reference interval . For someone without known diabetes, a glucose value between 100 and 125 mg/dL is consistent with prediabetes and should be confirmed with a follow-up test. . Not Reported: BUN and Creatinine are within reference range. . Desiree Tran PA-C LAB - BLOOD DRAW Final Resul t [facility] [address] [address], [facility] [address] [phone] * (ABNORMAL) HEPATITIS A,B,C PANEL (03/28/2020 9:20 AM EDT) HEPATITIS B SURFACE ANTIBODY NEGATIVE NEGATIVE [facility] HEPATITIS B SURFACE ANTIGEN NEGATIVE NEGATIVE [facility] Comment: Over the counter supplements containing high doses of biotin may interfere with this assay. If interference is suspected, patients shoud be retested after refraining from biotin supplements for 72 hours. HEPATITIS C VIRUS DIAGNOSTIC NEGATIVE NEGATIVE [facility] HEPATITIS B CORE ANTIBODY NEGATIVE NEGATIVE [facility] HEPATITIS A ANTIBODY TOTAL POSITIVE(A) NEGATIVE [facility] Comment: Over the counter supplements containing high doses of biotin may interfere with this assay. If interference is suspected, patients shoud be retested after refraining from biotin supplements for 72 hours. Blood Blood / Unknown 03/28/2020 9 :20 AM EDT 03/28/2020 10:25 AM EDT Narrative [facility] - 03/28/2020 2:33 PM EDT [employer], a member of [address] [address] Marketing Administrative Assistant - Vera Calvert MD [place] [id number] ORD# [id number] Desiree Tran PA-C LAB - BLOOD DRAW Edited Resu lt - Final [facility] [employer] [address], from Last 3 Months or Most Recently Relevant to Health Maintenance Insurance [facility] [employer] [place] [id number] Care Teams Prosecuting Attorney Relationship Specialty Start Date End Date Desiree Tran PA-C [address] [place] [address] PCP - General 04/05/13
== END 2025-02-13 12:24 | disposition home or self-care (01) ==
LOC: HO.HUSH 10:53
PROVIDERS: PCP Physician Assistant; Visit Provider Urology
DX: C64.9 Malignant neoplasm of unspecified kidney, except renal pelvis (principal)
CPT/HCPCS: 99204

== ENCOUNTER → 2025-02-13 10:52 | Outpatient (BNVA) | payer OTHER, SELFPAY | PROVIDERS: PCP Physician Assistant; Visit Provider Urology | DX: Z71.2 Person consulting for explanation of examination or test findings (principal); C64.1 Malignant neoplasm of right kidney, except renal pelvis | CPT/HCPCS: 99202 ==

== ENCOUNTER → 2025-02-14 09:09 | Outpatient (BNV) | payer OTHER, SELFPAY | PROVIDERS: PCP Physician Assistant; Visit Provider Urology | DX: Z13.9 Encounter for screening, unspecified (principal) | CPT/HCPCS: 81003 ==